=== PATIENT | female | born 1990 | race American Indian/Alaskan Native ===

== ENCOUNTER 2020-06-07 14:55 | Emergency (ER) | payer MEDICAID ==
[2020-06-07 15:01] VITALS: BP 123/81
--- NOTE | 2020-06-07 15:15 | Event Note ---
ED Screening Note Date of service: 06/07/20 Time: 15:15 ED Screening Note: c/o lower abdominal pain x 2 days 13 weeks , has not been following with OBGYn This initial assessment/diagnostic orders/clinical plan/treatment(s) is/are subject to change based on patients health status, clinical progression and re- assessment by fellow clinical providers in the ED. Further treatment and workup at subsequent clinical providers discretion. Patient/guardian urged not to elope from the ED as their condition may be serious if not clinically assessed and managed. Initial orders include: labs US
[2020-06-07 15:28] LABS: Bilirubin,Urine NEG (Negative); Blood,Urine NEG (Negative); Color,Urine Yellow (Yellow); Mucus,Urine FEW /HPF; Protein,Urine <15 mg/dL mg/dL (Negative); Urobilinogen,Urine < 2.0 mg/dL (<2.0)
[2020-06-07 15:56] LABS: Basophils % (Auto) 0.7 % (0.0-1.8); Eosinophils # (Auto) 0.1 K/mm3 (0.0-0.4); Eosinophils % (Auto) 1.6 % (0.0-4.3); Hemoglobin 11.5 gm/dl (10.1-14.3); Lymphocytes # (Auto) 1.8 K/mm3 (1.2-5.4); Lymphocytes % (Auto) 37.8 % (13.4-35.0); Mean Corpuscular HGB Conc 33 % (30-34); Mean Corpuscular Volume 85 fl (79-97); Monocytes # (Auto) 0.3 K/mm3 (0.0-0.8); Monocytes % (Auto) 7.1 % (0.0-7.3); Platelet Count 200 K/mm3 (140-440); Red Blood Count 4.12 M/mm3 (3.65-5.03); Red Cell Distribution Width 14.4 % (13.2-15.2)
[2020-06-07 16:15] LABS: Alanine Aminotransferase 9 units/L (7-56); Albumin 3.5 g/dL (3.9-5); Blood Urea Nitrogen 7 mg/dL (7-17); Calcium 9.3 mg/dL (8.4-10.2); Hemolysis Index 2
[2020-06-07 16:37] LABS: BUN/Creatinine Ratio 12
--- NOTE | 2020-06-07 16:54 | Emergency Department Report ---
ED General Adult HPI - General Chief complaint: Abdominal Pain Stated complaint: PREG/LOW ABDOMINAL PAIN Time Seen by Provider: 06/07/20 15:04 Source: patient Mode of arrival: Ambulatory Limitations: No Limitations - History of Present Illness Initial comments: 29-year-old female presents with 2 weeks of lower abdominal/pelvic pain, mild in nature but constant. She states that she is about 13 weeks but has not had any OB care yet. She denies vaginal bleeding, discharge, dysuria, fever, vomiting. No other complaints, pain is mild, no modifying factors Severity scale (0 -10): 7 - Related Data Allergies Allergy/AdvReac Type Severity Reaction Status Date / Time No Known Allergies Allergy Unverified 06/07/20 15:00 ED Review of Systems ROS: Stated complaint: PREG/LOW ABDOMINAL PAIN Other details as noted in HPI Comment: All other systems reviewed and negative Genitourinary: as per HPI ED Past Medical Hx - Social History Smoking Status: Never Smoker Substance Use Type: None ED Physical Exam - General Limitations: No Limitations General appearance: alert, in no apparent distress - Head Head exam: Present: atraumatic, normocephalic - Eye Eye exam: Present: normal appearance - ENT ENT exam: Present: mucous membranes moist - Neck Neck exam: Present: normal inspection - Respiratory Respiratory exam: Present: normal lung sounds bilaterally. Absent: respiratory distress - Cardiovascular Cardiovascular Exam: Present: regular rate, normal rhythm. Absent: systolic murmur, diastolic murmur, rubs, gallop - GI/Abdominal GI/Abdominal exam: Present: soft, normal bowel sounds. Absent: distended, tenderness, guarding, rebound - Extremities Exam Extremities exam: Present: normal inspection - Back Exam Back exam: Present: normal inspection - Neurological Exam Neurological exam: Present: alert, oriented X3 - Psychiatric Psychiatric exam: Present: normal affect, normal mood - Skin Skin exam: Present: warm, dry, intact, normal color. Absent: rash ED Course Vital Signs 06/07/20 15:00 Temperature 97.6 F Pulse Rate 92 H Respiratory 20 Rate Blood Pressure 123/81 [Right] O2 Sat by Pulse 99 Oximetry ED Medical Decision Making - Lab Data Result diagrams: 06/07/20 15:16 06/07/20 15:16 - Radiology Data Radiology results: report reviewed, image reviewed Single viable intrauterine 12 weeks 5 days - Medical Decision Making Patient presenting at 13 weeks gestation without OB care with complaints of lower abdominal discomfort for the past 2 weeks. No other associated symptoms. Abdomen is benign on my exam. Differentials include , UTI. I do not suspect an acute intra-abdominal surgical process such as appendicitis. Labs, urinalysis, ultrasound normal. Recommend [facility] follow-up. - Differential Diagnosis related pain, UTI, ectopic seems less likely Critical care attestation.: If time is entered above; I have spent that time in minutes in the direct care of this critically ill patient, excluding procedure time. ED Disposition Clinical Impression: Abdominal pain affecting Disposition: DC-01 TO HOME OR SELFCARE Is pt being admited?: No Condition: Good Instructions: Abdominal Pain (ED), Abdominal Pain During , [id number] Referrals: PRIMARY CAREMD [Primary Care Provider] - 3-5 Days JULIA KRUGER MD [Staff Physician] - 3-5 Days Time of Disposition: 17:20
--- NOTE | 2020-06-07 17:12 | Ultrasound Report ---
ULTRASOUND OBSTETRIC Indication: pain in Findings: Transabdominal and transvaginal imaging is performed. There is a single, living intrauterine . [place]-rump length = 6.2 cm = 12 weeks, 5 day(s). Which corresponds to the patient's last menstrual pe riod dates. heart rate is 145 beats per minute. The ovaries are normal. There is no free fluid. Impression: Single, living intrauterine with estimated sonographic age of 12 weeks, 5 day(s). Signer Name: Ulises Coleman MD Signed: 06/07/2020 5:07 PM Workstation Name: [id number]
== END 2020-06-07 18:32 | disposition home or self-care (01) ==
LOC: ED 14:55
DX: O26.891 Other specified pregnancy related conditions, first trimester (principal); R10.2 Pelvic and perineal pain; Z3A.13 13 weeks gestation of pregnancy
CPT/HCPCS: 36415; 76801; 76817; 80053; 81001; 84702; 85025

== ENCOUNTER 2020-09-24 16:24 | Outpatient (CLI) | payer MEDICAID ==
[2020-09-24 17:46] VITALS: BP 128/72
[2020-09-24] MEDS ORDERED: LACTATED RINGERS 500 ML IV ONE (19:02)
[2020-09-24 19:16] LABS: Bilirubin,Urine NEG (Negative); Blood,Urine NEG (Negative); Color,Urine Yellow (Yellow); Mucus,Urine 3+ /HPF; Urobilinogen,Urine < 2.0 mg/dL (<2.0)
== END 2020-09-24 19:50 | disposition home or self-care (01) ==
LOC: TRG 16:24 → APU 16:59 → TRG 19:50
PROVIDERS: ATTEND Obstetrics & Gynecology
DX: O26.893 Other specified pregnancy related conditions, third trimester (principal); R10.30 Lower abdominal pain, unspecified; O47.03 False labor before 37 completed weeks of gestation, third trimester; Z3A.28 28 weeks gestation of pregnancy
CPT/HCPCS: 59025; 81001; 96360; J7120